=== PATIENT | male | born 1960 | race Caucasian/White ===

== ENCOUNTER 2016-09-30 09:21 | Outpatient (CLI) | payer MEDICARE ==
[~2016-09-30] VITALS: Ht 175.3 cm; Wt 98.6 kg
--- NOTE | ~2016-09-30 | HEMODYNAMI ---
PATIENT:ENRIQUE GAVIRIA MEDICAL RECORD: [id number] : 62 LOCATION:[facility] ADMISSION DATE: 09/30/16 Generatedon:09/30/201611:33 Patient name: ENRIQUE GAVIRIA Patient #: [id number] SSN: : 1960 Date of study: 09/30/2016 Page: Of Hemodynamic Procedure Report Patient Data Patient Demographics Procedure consent was obtained First Name: ENRIQUE Gender: Male Last Name: EVERETTE : 1960 [facility] Initial: STEPHANIE Age: 56 year(s) Patient #: [id number] Race: Additional ID: [id number] Contact details [address]: [address] [place] [address] State: [place] City: [place] Zip code: [address] Past Medical History History of disease Date Diagnosis Comments CAD Valvular heart disease Hypertension Allergies Allergen Reaction Date Comments Reported Bactrim 08/08/2014 Morphine 08/08/2014 Demerol 08/08/2014 Sulfa drugs 08/08/2014 Other allergy 08/08/2014 Nitro Patch Morphine 09/30/2016 Sulfa drugs 09/30/2016 Demerol 09/30/2016 Vancomycin 09/30/2016 Bactrim 09/30/2016 Morphine 09/30/2016 Admission Admission Data Admission Date: 09/30/2016 Admission Time: 9:21 Height (in.): 69 BSA: 2.14 (m2) Height (cm.): 175.26 BMI: 32.04 (kg/m2) Weight (lbs.): 217 Weight (kg.): 98.43 Lab Results Lab Result Date: 09/30/2016 Lab Result Time: 0:00 Biochemistry Name Units Result Min Max Creatinine mg/dl 1.1 --(--*-)-- 0.6 1.3 CBC Name Units Result Min Max Hemoglobin g/dl 16.6 --(---*)-- 13.5 17.5 Procedure Procedure Types Cath Procedure Diagnostic Procedure [facility] w/Coronaries PCI Procedure Coronary Stent Initial Miscellaneous Procedures Moderate Sedation up to 15 minutes Procedure Description Procedure Date Procedure Date: 09/30/2016 Procedure Start Time: 11:17 Procedure End Time: 11:30 Procedure Staff Name Function Ortega Mead MD Performing Physician Angelique Brady RT Scrub Gilbert Ruano RN Nurse Jerome Modi RT User Interface Artist Arlen Denton RT Monitor Procedure Data Cath Procedure Fluoroscopy Diagnostic fluoroscopy Total fluoroscopy Time: 2.8 time: 2.8 min min Diagnostic fluoroscopy Total fluoroscopy dose: 717 dose: 717 mGy mGy Contrast Material Contrast Material Type Amount (ml) Isovue 300 68 Entry Location Entry Primary Successful Side Size Upsize Upsize Entry Closure Succes sful Closure Location (Fr) 1 (Fr) 2 (Fr) Remarks Device Remarks Femoral Right 5 Fr 6 Fr artery Short Diagnostic catheters Device Type Used For End Catheter Placement Cordis 5Fr Pigtail LV Angiography Catheter (MP) Cordis 5Fr JL 4.0 Left Coronary Catheter (MP) Angiography Cordis 5Fr 3DRC Catheter Right Coronary (MP) Angiography Procedure Complications No complications Procedure Medications Medication Administration Route Dosage Oxygen NC 2 l/min Lidocaine 2% added to field 20 Heparin Flush Bag added to field 2 bags (1000units/500ml NS) 0.9% NaCl I.V. 100 ml/hr Versed I.V. 2 mg Fentanyl I.V. 100 mcg Versed I.V. 2 mg Fentanyl I.V. 100 mcg 0.9% NaCl I.V. bolus 250 ml Heparin Bolus I.V. 4000 units Versed I.V. 1 mg Fentanyl I.V. 50 mcg Hemodynamics Rest BSA: 2.14 (m2) O2 Consumption: Estimated: 291.04 (ml/min) O2 Consumption indexed : Estimated:136 (ml/min/m) Pre Cath Intra NCS Post Cath Vital Signs Time Heart Resp SPO2 etCO2 [id number] NIBP Rhythm Pain Status Sedat ion Rate (ipm) (%) (mmHg) (mmHg) (mmHg) Level (bpm) 11:01:07 100 17 98 0 0 110/89(95) NSR 4 (11) , 10(A) Distressing 11:05:17 101 14 97 0 0 106/79(92) NSR 4 (11) , 10(A) Distressing 11:10:12 101 16 97 0 0 109/74(88) NSR 4 (11) , 10(A) Distressing 11:14:24 103 15 96 0 0 110/73(90) NSR 4 (11) , 10(A) Distressing 11:18:38 103 16 96 0 0 84/67(76) NSR 4 (11) , 10(A) Distressing 11:23:23 101 15 97 0 0 98/73(83) NSR 0 (11) , No 9(A) pain 11:27:28 103 17 97 0 0 100/72(87) NSR 0 (11) , No 10(A) pain 11:31:18 104 16 96 0 0 108/69(91) NSR 0 (11) , No 10(A) pain Medications Time Medication Route Dose Verified Delivered Reason Notes Effectiveness by by 10:59:38 Oxygen NC 2 Ortega Buffie used for l/min Alyec Ruano RN procedure 10:59:45 Lidocaine 2% added 20ml Ortega Ortega for local to vial Alyce Mead MD anesthetic field 10:59:53 Heparin Flush added 2 Ortega Ortega used for Bag to bags Alyce Mead MD procedure (1000units/500ml field NS) 11:00:02 0.9% NaCl I.V. 100 Ortega Buffie Per physician ml/hr Alyce Ruano RN 11:15:09 Versed I.V. 2 mg Ortega Buffie for sedation Alyce Ruano RN 11:15:16 Fentanyl I.V. 100 Ortega Buffie for sedation mcg Alyce Ruano RN 11:19:33 Versed I.V. 2 mg Ortega Buffie for sedation Alyce Ruano RN 11:19:39 Fentanyl I.V. 100 Ortega Buffie for sedation mcg Alyce Ruano RN 11:19:47 0.9% NaCl I.V. 250 Ortega Buffie Per physician bolus ml Alyce Ruano RN 11:22:44 Heparin Bolus I.V. 4000 Ortega Buffie for verifi ed units Alyce Ruano RN anticoagulation with dr mead 11:24:41 Versed I.V. 1 mg Ortega Buffie for sedation Alyce Ruano RN 11:24:46 Fentanyl I.V. 50 Ortega Buffie for sedation mcg Alyce Ruano RN Procedure Log Time Note 10:40:04 Jerome Modi RT(R) sent for patient. Start room use. 10:47:10 Time tracking: Regular hours 10:47:14 Plan of Care:Hemodynamics will remain stable., Cardiac rhythm will remain stable., Comfort level will be maintained., Respiratory function will remain adequate., Patient/ family verbilizes understanding of procedure., Procedure tolerated without complication., Recovers from procedure without complications.. 10:47:19 Patient received from Pre/Post Procedure Room to CCL 1 Alert and oriented. Tansferred to table in Supine position. 10:47:20 Warm blankets applied, and zeus hugger turned on for patient comfort. 10:47:25 Correct patient and procedure confirmed by team. 10:47:27 Signed procedure consent form obtained from patient. 10:47:27 ECG and BP/O2 sat monitors applied to patient. 10:47:29 Full Disclosure recording started 10:59:38 Oxygen 2 l/min NC was given by Gilbert Ruano RN; used for procedure; 10:59:45 Lidocaine 2% 20ml vial added to field was given by Ortega Mead MD; for local anesthetic; 10:59:53 Heparin Flush Bag (1000units/500ml NS) 2 bags added to field was given by Ortega Mead MD; used for procedure; 11:00:02 0.9% NaCl 100 ml/hr I.V. was given by Gilbert Ruano RN; Per physician; 11:00:07 Vital chart was started 11:01:16 H&P Date Dictated: 09/29/2016 Within 30 days and on chart., H&P Addendum completed by physician on day of procedure. (MUST COMPLETE FOR ALL OUTPATIENTS). 11:01:17 Pre-procedure instructions explained to patient. 11:01:18 Pre-op teaching completed and patient verbalized understanding. 11:01:19 Family in patients room. 11:01:20 Patient NPO since Midnight. 11:01:34 Is patient on blood thinner?Yes 11:01:36 ACC The patient was administered the following blood thiners within the last 24 hours: ACCPlavix 11:01:40 Patient diabetic? No. 11:01:44 Previous problem with sedation/anesthesia? No ? 11:01:46 Snore? Yes 11:01:46 Sleep apnea? Yes 11:01:48 Deviated septum? No 11:01:48 Opens mouth fully? Yes 11:01:49 Sticks out tongue? Yes 11:01:53 Airway obstruction? No ? 11:01:55 Dentures? No ? 11:01:58 Pre procedure: right dorsailis pedis pulse 2+ Normal; easily identifiable; not easily obliterated 11:02:00 Patient pain scale 0/10 ?. 11:02:05 IV patent on arrival in left hand with 0.9% NaCl at [facility]. 11:03:03 Lab Result : Creatinine 1.1 mg/dl 11:03:03 Lab Result : Hemoglobin 16.6 g/dl 11:03:07 Lab results completed and on chart. 11:03:10 Right groin area was prepped with chlora-prep and draped in sterile fashion 11:03:11 Alarms reviewed by R. N. 11:03:11 Sharps counted by scrub and verified by R.N. 11:03:14 Use device set Femoral Dx 11:03:15 Acist Syringe opened to sterile field. 11:03:16 Bag Decanter opened to sterile field. 11:03:17 Cardinal Cath Pack opened to sterile field. 11:03:18 Terumo 5Fr Marina Sheath opened to sterile field. 11:03:18 St Elias 260cm J .035 wire opened to sterile field. 11:03:23 Acist Hand Control opened to sterile field. 11:03:24 Acist Manifold opened to sterile field. 11:03:31 Cordis Infinity 5Fr Multipack catheter opened to sterile field. 11:03:33 Tegaderm 4 x 4 opened to sterile field. 11:04:16 Arlen Denton RT(R) was relieved by Jerome Modi RT(R) as monitoring person 11:05:26 Patient allergic to Morphine 11:05:40 Patient allergic to Sulfa drugs 11:05:46 Patient allergic to Demerol 11:05:52 Patient allergic to Vancomycin 11:06:01 Patient allergic to Bactrim 11:06:06 Is the patient allergic to Iodine/contrast media? No. 11:06:13 ACC Patient presents with Stable Angina CCS Anginal Class 2--Slight limitation of ordinary activity. 11:06:15 Diagnostic Cath status Elective 11:06:47 Patient allergic to Morphine 11:06:57 Patient Height : 69 inches 11:07:06 Patient Weight : 217 lbs 11:13:36 --------ALL STOP TIME OUT------ 11:13:37 Final Timeout: patient, procedure, and site verified with staff and physician. All members of the team are in agreement. 11:13:38 Right groin site verified by team. 11:13:41 Physical assessment completed. ASA score P 2 - A patient with mild systemic disease as per Ortega Mead MD. 11:13:45 Sedation plan: IV Moderate Sedation Versed, Fentanyl 11:15:09 Versed 2 mg I.V. was given by Gilbert Ruano RN; for sedation; 11:15:16 Fentanyl 100 mcg I.V. was given by Gilbert Ruano RN; for sedation; 11:17:28 Procedure started. 11:17:57 Local anesthetic to right femoral artery with Lidocaine 2% by Ortega Mead MD.INITIAL ACCESS ONLY 11:18:04 A 5 Fr sheath was inserted into the Right Femoral artery 11:18:11 Zero performed for pressure channel P1 11:18:25 A Cordis 5Fr Pigtail Catheter (MP) was advanced over the wire and used for LV Angiography. 11:19:01 LV angiography performed. 11:19:03 LV gram done using LUTHER 11:19:17 EF : 60 % 11:19:20 Catheter removed. 11:19:26 A Cordis 5Fr JL 4.0 Catheter (MP) was advanced over the wire and used for Left Coronary Angiography. 11:19:33 Versed 2 mg I.V. was given by Gilbert Ruano RN; for sedation; 11:19:34 LCA angiography performed. 11:19:39 Fentanyl 100 mcg I.V. was given by Gilbert Ruano RN; for sedation; 11:19:47 0.9% NaCl 250 ml I.V. bolus was given by Gilbert Ruano RN; Per physician; 11:20:15 Catheter removed. 11:20:41 A Cordis 5Fr 3DRC Catheter (MP) was advanced over the wire and used for Right Coronary Angiography. 11:20:46 RCA angiography performed. 11:21:22 Catheter removed. 11:21:43 Terumo 6Fr Marina Sheath opened to sterile field. 11:21:43 [employer] BasixCompak Inflation Kit opened to sterile field. 11:21:44 Hooker Whisper J 300cm 0.014 guide wire opened to sterile field. 11::44 Cordis 6FR XBLAD 4.0 guide catheter opened to sterile field. 11::52 Sheath upsized to a 6 Fr Short. 11:22:01 ACC PCI Site: dLAD has 90% stenosis. 11:22:04 ACC Pre-intervention MANUEL Flow is 2. 11:22:11 6 Fr XBLAD 4 guide catheter was inserted over the wire 11:: WHISPER wire advanced. 11::44 Heparin Bolus 4000 units I.V. was given by Gilbert Ruano RN; for anticoagulation; verified with dr mead 11::41 Versed 1 mg I.V. was given by Gilbert Ruano RN; for sedation; 11::46 Fentanyl 50 mcg I.V. was given by Gilbert Ruano RN; for sedation; 11::19 Inflation Number: 1 A Tripologytronic Resolute 2.25 X 12 stent was prepped and advanced across the Dist LAD. The stent was deployed at 9 CONRADO for 0:12 (min:sec). 11::25 ACC Post-intervention MANUEL Flow is 3. 11:26:26 Stent catheter was removed intact over wire. 11::27 Wire removed. 11::27 Guide catheter removed. 11::41 Contrast amount:Isovue 300 68ml. 11:26:42 Procedure ended.(Physican Out) 11:26:54 Fluoroscopy time 02.80 minutes. 11::59 Fluoroscopy dose: 717 mGy 11::59 Flurop Dose total: 717 11:27:01 Sharps counted by scrub and verified by R.N. 11:27:02 Insertion/operative site no bleeding no hematoma. 11:27:05 Post-op/insertion site Right Femoral artery dressed using a 4 x 4 and Tegaderm. 11:27:09 Post right femoral artery:stable 11:27:10 Post Procedure Pulses reassessed and unchanged 11:27:13 Post procedure rhythm: sinus rhythm 11:27:14 Post procedure instruction explained to patient.Patient verbalizes understanding. 11:27:27 Vascade 6/7 Fr Closure Device opened to sterile field. 11:28:00 Procedure type changed to Cath procedure, Diagnostic procedure, [facility] w/Coronaries, PCI procedure, Coronary Stent Initial, Miscellaneous Procedures, Moderate Sedation up to 15 minutes 11:29:57 Procedure and supply charges have been captured, reviewed, submitted and are correct. 11:30:30 Procedure Complication : No complications 11:30:40 Vital chart was stopped 11:30:41 See physician's report for complete and final results. 11:30:44 Report given to Pre/Post Procedure Room. 11:30:49 Patient transfered to Pre/Post Procedure Room with Stretcher. 11:30:51 Procedure ended. 11:30:51 Full Disclosure recording stopped 11:31:07 End room use (Document Last) Intervention Summary Intervention Notes Time ActionType Lesion and Equipment Action# Pressure Duration Attributes Used 11:26:19 Place stent Dist LAD Medtronic 1 9 00:13 Resolute 2.25 X 12 stent Device Usage Item Name Manufacture Quantity Catalog Hospital Part Current Minima l Lot# / Number Charge Number Stock Stock Serial# Code Acist Acist 1 71696 566210 556071 931093 20 Syringe Medical Systems Inc Bag Microtek 1 2002S 700806 69910 256071 5 Decanter [employer] Inc. Cardinal Cardinal 1 [id number] 851036 57913 243181 5 Cath Pack Health Terumo 5Fr Terumo 1 [id number] 499080 561196 169651 [address] [place] 1 005932 278660 786647 775967 30 260cm J .035 wire Acist Hand Acist 1 63348 673588 921675 200553 5 [employer] Inc Acist Acist 1 84435 241647 449908 887167 5 M[employer] Inc Cordis Cardinal 1 [id number] 262682 82266 934167 30 Infinity Health 5Fr Multipack catheter Tegaderm 4 3M 1 1626W 484930 196080 427657 5 x 4 Cordis 5Fr Cardinal 1 547302 5 Pigtail Health Catheter (MP) Cordis 5Fr Cardinal 1 758877 5 JL 4.0 Health Catheter (MP) Cordis 5Fr Cardinal 1 081478 5 3DRC Health Catheter (MP) Terumo 6Fr Terumo 1 [id number] 504087 479562 594321 40 Marina Sheath Merit Merit 1 [id number] 774383 005422 962101 15 BookingPal Medical Inflation Kit Hooker Hooker 1 [id number] 634324 449256 688800 5 Whisper J Vascular 300cm 0.014 guide wire Cordis 6FR Cardinal 1 [id number] 715502 054655 236998 3 XBLAD 4.0 Health guide catheter Medtronic Medtronic 1 [id number] 311624 271508 2 [id number] Resolute 2.25 X 12 stent Vascade 01/25 Cardiva 1 [id number] 815348 114555 985601 5 Fr Closure Medical[employer] Device Inc. Signature Audit [place] Stage Time Signature Unsigned Intra-Procedure 09/30/2016 Jerome Modi 11:33:53 AM RT(R) Signatures Monitor : Arlen Signature : Counts RT Date : Time : [place] [address] [place] [address]
[~2016-09-30 09:21] MED LIST: ALEVE220 MG PO; AMBIEN10 MG PO; ASPIRIN325 MG PO; AVODART0.5 MG PO; BAYER CHEWABLE81 MG PO; CIPRO500 MG PO; EFFIENT10 MG; FLOMAX0.4 MG PO; HYDROCODONE-APA1 TAB PO; KEFLEX500 MG PO; KLONOPIN1 MG PO; LISINOPRIL10 MG PO; NEXIUM20 MG PO; NEXIUM40 MG PO; NITROSTAT0.4 MG SL; NORCO 10/325 TA1 TA1 PO; OXYCONTIN20 MG PO; OXYCONTIN30 MG PO; PAXIL20 MG PO; PLAVIX75 MG PO; PRAVACHOL20 MG PO; PRAVACHOL40 MG PO; PRINIVIL20 MG PO; RANEXA500 MG PO; STADOL NASAL S2.5 ML NS; XANAX2 MG PO; ZANAFLEX4 MG; ZANAFLEX4 MG PO; ZOLOFT100 MG PO
[2016-09-30] MEDS ORDERED: PAXIL40 MG PO (09:52)
[2016-09-30] MEDS ORDERED: ASPIRIN325 MG PO (09:52)
[2016-09-30] MEDS ORDERED: ISOSORBIDE MONO30 M1 PO (09:53)
[2016-09-30] MEDS ORDERED: ZETIA10 MG PO (09:53)
[2016-09-30 10:05] VITALS: BP 108/80; Ht 175.3 cm; Wt 98.6 kg
[2016-09-30 10:06] LABS: BASOPHILS 0.2 % (0.0-2.0); HEMATOCRIT 48.1 % (42.0-54.0); HEMOGLOBIN 16.6 g/dL (13.5-17.5); IMMATURE GRANULOCYTES 0.1 % (0-5); LYMPHOCYTES 22.6 % (15-50); MCH 30.1 pg (26.0-34.0); MCHC 34.5 g/dL (31.0-37.0); MCV 87.3 fL (80.0-100.0); MEAN PLATELET VOLUME 10.2 fL (7.4-10.4); MONOCYTES 5.1 % (2-11); PLATELET COUNT 309 10x3/uL (130-400); RBC 5.51 10x6/uL (4.20-6.10); RDW 13.3 % (11.5-14.5); WBC 11.3 10x3/uL (4.8-10.8)
[2016-09-30 10:29] LABS: ANION GAP 16.4 mmol/L (8-16); CREATININE - SERUM 1.1 mg/dL (0.6-1.3); POTASSIUM - SERUM 4.4 mmol/L (3.5-5.1)
--- NOTE | 2016-10-14 08:46 | OP ---
PATIENT NAME: ENRIQUE GAVIRIA MEDICAL RECORD: [id number] :62 LOCATION:D.[facility] ADMISSION DATE: SURGEON: EPI HADLEY MD DATE OF OPERATION: 09/30/2016 PROCEDURES: 1. PTCA stent LAD. 2. Left heart catheterization. 3. Selective coronary angiography. 4. Left ventriculogram. PROCEDURE IN DETAIL: After informed consent was obtained and after detailed explanation of risks, benefits as well as alternative therapies, the patient elected to proceed with angiogram and angioplasty. The right femoral area is prepped and draped in normal sterile fashion. The right femoral artery was cannulated via modified Seldinger technique with placement of 6-Japanese sheath. All catheters exchanged through this sheath. FINDINGS: Left ventriculogram was performed in the standard 30-degree LUTHER view, reveals good cardiac wall motion throughout all segments. Overall ejection fraction estimated at 60%. SELECTIVE CORONARY ANGIOGRAPHY: 1. Left main is with no significant angiographic disease. 2. Left anterior descending has previously placed stents, these are all widely patent. However, there is a new 90% stenosis distally. 3. Left circumflex shows moderate irregularities, but no flow-limiting stenosis. 4. Right coronary has moderate irregularities, but no flow-limiting stenosis. PTCA STENT OF THE LAD: The stent used was a 2.25 x 12 mm Resolute. Result was 0% residual stenosis. OVERALL IMPRESSION: Successful percutaneous transluminal coronary angioplasty stent of the distal descending going from 90% initial stenosis to 0% residual. TRANSINT:[id number] Voice Confirmation ID: [id number] DOCUMENT ID: [id number] EPI HADLEY MD at 0846 CC: [id number] DICTATION DATE: 09/30/16 1131 SOAKER HIDES: 09/30/16 1334 DEP CLI 09/30/16 [facility] [address] [place] [address]
== END 2016-09-30 15:30 | disposition home or self-care (01) ==
LOC: D.CATH 09:21
PROVIDERS: Internal Medicine Interventional Cardiology
DX: I25.119 Atherosclerotic heart disease of native coronary artery with unspecified angina pectoris (principal)
CPT/HCPCS: 93458; C9600